=== PATIENT | male | born 1980 | race Caucasian/White ===

== ENCOUNTER 2017-10-24 06:59 | Emergency (ER) | payer OTHER, MEDICARE ==
[~2017-10-24] VITALS: Ht 182.9 cm; Wt 81.6 kg
[2017-10-24 07:07] VITALS: BP 157/100
--- NOTE | 2017-10-24 07:37 | ED SKIN/ALLERGY COMPLAINT ---
History of Present Illness General Chief Complaint: Skin Rash/ Abcess Stated Complaint: PT C/C L ARM ABCESS S/P "SHOOTING HERION" PER PT Source: patient, old records Exam Limitations: no limitations Vital Signs & Intake/Output Vital Signs & Intake/Output Vital Signs Date Time Temp Pulse Resp B/P B/P Pulse O2 O2 Flow FiO2 Mean Ox Delivery Rate 10/24 0812 97 10/24 0707 96.6 72 20 157/100 96 Room Air Allergies Coded Allergies: NO KNOWN ALLERGIES (06/16/11) Reconcile Medications Cephalexin (Keflex) 500 MG CAPSULE 1 CAP PO TID abscess Sulfamethoxazole/Trimethoprim (Bactrim Ds Tablet) 800 MG-160 MG TABLET 1 TAB PO BID abscess Triage Note: PT TO ED C/O ABSCESS TO CATY. STATES HE THINKS IT WAS FROM SHOOTING UP HEROIN 2 WEEKS AGO. AFEBRILE. Triage Nurses Notes Reviewed? 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 He denies fever chills nausea vomiting diarrhea abdominal pain chest pain shortness breath headache dysuria bleeding. Past History Travel History Traveled to [place] past 21 day No Medical History Any Pertinent Medical History? see below for history Psychiatric: methadone Surgical History Surgical History: non-contributory Psychosocial History What is your primary language [place] Tobacco Use: Current Daily Use Daily Tobacco Use Amount/Type: => 5 Cigarettes daily ETOH Use: denies use Illicit Drug Use: heroin Family History Hx Contributory? No Review of Systems Review of Systems Constitutional: Reports: no symptoms. EENTM: Reports: no symptoms. Respiratory: Reports: no symptoms. Cardiovascular: Reports: no symptoms. GI: Reports: no symptoms. Genitourinary: Reports: no symptoms. Musculoskeletal: Reports: no symptoms. Skin: Reports: see HPI, erythema, lesions. Neurological/Psychological: Reports: no symptoms. Hematologic/Endocrine: Reports: no symptoms. Immunologic/Allergic: Reports: no symptoms. All Other Systems: Reviewed and Negative Physical Exam Physical Exam General Appearance: well developed/nourished, alert, awake, anxious, mild distress Head: atraumatic, normal appearance Eyes: Bilateral: normal appearance, PERRL, EOMI. Ears, Nose, Throat: normal pharynx, normal ENT inspection, hearing grossly normal Neck: normal inspection, supple, full range of motion, no midline tenderness Respiratory: normal breath sounds, chest non-tender, no respiratory distress, quiet respiration, lungs clear Cardiovascular: regular rate/rhythm, normal peripheral pulses, norml femoral pulses equa Peripheral Pulses: 4+ carotid (R), 4+ carotid (L) Gastrointestinal: normal bowel sounds, soft, non-tender, no organomegaly Back: normal inspection, normal range of motion Extremities: normal capillary refill, normal range of motion, no edema, swelling , tenderness Neurologic/Psych: no motor/sensory deficits, awake, alert, oriented x 3, normal gait, normal mood/affect Reflexes: 2+: bicep (R), bicep (L). Skin: rash Skin Problem Location: upper extremities (left biceps) Skin Problem Character: abcess, erythema, tenderness Lymphatic: adenopathy, axilla node tender (L) Progress Differential Diagnosis: abscess/cellulitis, contact dermatitis, drug reaction Plan of Care: Current Medications Sig/Merlyn Start time Last Medication Dose Stop Time Status Admin Cephalexin 500 MG ONCE ONE 10/24 829 UNVr (Keflex) 10/24 830 Trimethoprim/ 1 TAB ONCE ONE 10/24 829 UNVr Sulfamethoxazole 10/24 830 (Bactrim DS) Diagnostic Imaging: Viewed by Me: Radiology Read. Discussed w/RAD: Radiology Read. Radiology Impression: There is no fracture or malalignment. There is no radiopaque foreign body. There are no other bony or soft tissue abnormalities. Departure Departure Time of Disposition: 821 Disposition: HOME OR SELF CARE Condition: Stable Clinical Impression Primary Impression: Abscess of left arm Referrals: Kimberly FULTON,Codie Moya (PCP/Family) Son FULTON,[place] Call for surgical follow up as needed Additional Instructions: Return for wick removal in 2 days if it has not fallen out. Departure Forms: Customer Survey General Discharge Information Prescriptions: Current Visit Scripts Sulfamethoxazole/Trimethoprim (Bactrim Ds Tablet) 1 TAB PO BID #20 TAB Cephalexin (Keflex) 1 CAP PO TID #30 CAP Procedures Incision and Drainage Site: L biceps Blade Size: 10 I & D Procedure: Yes: betadine prep, sterile drapes applied, sterile dressing applied, wick placed.
--- NOTE | 2017-10-24 08:10 | RADIOLOGY REPORT ---
EXAMINATION: XR HUMERUS, LEFT CLINICAL INFORMATION: Abscess left biceps from IV heroin. Presumptive diagnosis: Foreign body. COMPARISON: None TECHNIQUE: AP and lateral views of the left humerus. FINDINGS: There is no fracture or malalignment. There is no radiopaque foreign body. There are no other bony or soft tissue abnormalities. IMPRESSION: No radiopaque foreign body.
[2017-10-24] MEDS ORDERED: BACTRIM DS TAB1 EACH PO (08:25)
[2017-10-24] MEDS ORDERED: KEFLEX500 M1 PO (08:25)
== END 2017-10-24 08:31 ==
LOC: ERH 06:59
DX: L02.414 Cutaneous abscess of left upper limb (principal)
CPT/HCPCS: 73060-LT; J2001

== ENCOUNTER 2017-10-26 08:10 | Emergency (ER) | payer OTHER, MEDICARE ==
[~2017-10-26 08:10] MED LIST: BACTRIM DS TAB1 EACH PO; KEFLEX500 M1 PO
[2017-10-26 08:19] VITALS: BP 122/70
--- NOTE | 2017-10-26 08:39 | ED ANIMAL BITE/WOUND CHECK ---
History of Present Illness General Chief Complaint: Suture Removal/Wound Recheck Stated Complaint: LEFT ARM WOUND CHECK Source: patient, old records Exam Limitations: no limitations Vital Signs & Intake/Output Vital Signs & Intake/Output Vital Signs Date Time Temp Pulse Resp B/P B/P Pulse O2 O2 Flow FiO2 Mean Ox Delivery Rate 10/26 0819 97.0 82 22 122/70 98 Allergies Coded Allergies: NO KNOWN ALLERGIES (06/16/11) Reconcile Medications Cephalexin (Keflex) 500 MG CAPSULE 1 CAP PO TID abscess Sulfamethoxazole/Trimethoprim (Bactrim Ds Tablet) 800 MG-160 MG TABLET 1 TAB PO BID abscess Triage Note: PER PT WOUND TO L BICEP DRAINED ON TUESDAY TOLD TO RETURN FOR WOUND CHECK Triage Nurses Notes Reviewed? yes HPI: Patient presents for packing removal from an abscess to his left biceps. Patient has no complaints. There are no fevers or chills. Past History Travel History Traveled to [place] past 21 day No Medical History Any Pertinent Medical History? see below for history Neurological: NONE EENT: NONE Cardiovascular: NONE Respiratory: NONE Gastrointestinal: NONE Hepatic: NONE Renal: NONE Musculoskeletal: NONE Psychiatric: methadone Surgical History Surgical History: non-contributory Psychosocial History What is your primary language Sinhala Tobacco Use: Current Daily Use Daily Tobacco Use Amount/Type: => 5 Cigarettes daily ETOH Use: occasional use Illicit Drug Use: heroin Family History Hx Contributory? No Review of Systems Review of Systems Constitutional: Reports: no symptoms. Respiratory: Reports: no symptoms. Cardiovascular: Reports: no symptoms. Musculoskeletal: Reports: no symptoms. Neurological/Psychological: Reports: no symptoms. Immunologic/Allergic: Reports: no symptoms. Physical Exam Physical Exam General Appearance: well developed/nourished, alert, awake Eyes: Bilateral: PERRL, EOMI. Extremities: pACKING REMOVED FROM LEFT BICEPS. dOES NOT NEED FURTHER PACKING. NEW BANDAGE APPLIED. Neurologic/Psych: no motor/sensory deficits, awake, alert, oriented x 3, normal gait, normal mood/affect Lymphatic: NO AXILLARY ADENOPATHY Progress Differential Diagnosis: abscess Plan of Care: PACKING REMOVED Departure Departure Disposition: HOME OR SELF CARE Condition: Stable Clinical Impression Primary Impression: Wound check, abscess Referrals: Kimberly FULTON,Codie Moya (PCP/Family) Additional Instructions: REUTRN IF SYMPTOMS WORSEN OR FOR ANY CONCERNS Departure Forms: Customer Survey General Discharge Information
== END 2017-10-26 08:57 ==
LOC: ERH 08:10
DX: Z48.02 Encounter for removal of sutures (principal)